=== PATIENT | female | born 1985 | race Two or more races ===

== ENCOUNTER → 2017-11-25 | Outpatient (CLI) | payer OTHER | LOC: M LRY 13:54 | DX: R05 Cough (principal) | CPT/HCPCS: 71046; 87086 ==

== ENCOUNTER → 2017-11-25 | Outpatient (REF) | payer OTHER | LOC: M SFHCLERA 14:27 | DX: R35.0 Frequency of micturition (principal) ==

== ENCOUNTER → 2017-12-06 | Outpatient (CLI) | payer OTHER | LOC: M LRY 18:14 | DX: R05 Cough (principal) | CPT/HCPCS: 71101; G0463 ==

== ENCOUNTER → 2018-03-20 | Outpatient (REF) | payer OTHER | LOC: M SFHCLERA 10:13 | DX: J02.9 Acute pharyngitis, unspecified (principal) ==